=== PATIENT | female | born 1980 ===

== ENCOUNTER → 2023-11-11 08:03 | Outpatient (REF) | payer BC, SELFPAY | LOC: HWWDC 08:03 | PROVIDERS: ATTENDING PHYSICIAN Nurse Practitioner | DX: Z12.31 Encounter for screening mammogram for malignant neoplasm of breast (principal) | CPT/HCPCS: 77063; 77067 ==

== ENCOUNTER → 2024-11-13 07:46 | Outpatient (REF) | payer BC, SELFPAY | LOC: HWWDC 07:46 | PROVIDERS: ATTENDING PHYSICIAN Nurse Practitioner Adult Health | DX: Z12.31 Encounter for screening mammogram for malignant neoplasm of breast (principal) | CPT/HCPCS: 77063; 77067 ==